=== PATIENT | male | born 1985 | race Caucasian/White ===

== ENCOUNTER → 2020-05-18 | Outpatient (CLI) | payer OTHER | LOC: LAB 08:54 | DX: J02.9 Acute pharyngitis, unspecified (principal); J34.89 Other specified disorders of nose and nasal sinuses; M79.10 Myalgia, unspecified site; Z20.828 Contact with and (suspected) exposure to other viral communicable diseases ==

== ENCOUNTER → 2021-08-01 | Outpatient (CLI) | payer OTHER | LOC: LAB 11:16 | DX: U07.1 COVID-19 (principal) ==